=== PATIENT | female | born 1955 | race Caucasian/White ===

== ENCOUNTER 2016-06-08 10:09 | Emergency (ER) | payer OTHER ==
--- NOTE | 2016-06-08 10:45 | UCPHY ---
H & P Time Seen by Provider: 06/08/16 10:32 Patient Type: Established HPI/ROS: 60 yo with history of hyperlipidemia presents complaining of 3 weeks of ringing in her left ear, she states she has had left arm numbness intermittently that may have begun at about the same time 3 weeks ago and has become markedly worse since last night. She denies headache. She denies numbness in her right arm or other extremities. Review of systems As per HPI-left ear ringing, left arm numbness General no fever no chills no weakness HEENT no eye pain no eye discharge. No eye redness, no sore throat Respiratory no cough, no shortness of breath Cardiac no chest pain, no peripheral edema GI no abdominal pain, no diarrhea, no constipation, no nausea, no vomiting no flank pain, no hematuria, no dysuria Musculoskeletal no myalgias, no joint pain Heme no easy bruising, no easy bleeding Endo no polyuria, no polydipsia Skin no rashes, no pruritus Neuro no syncope, no dizziness, no headaches, positive paresthesias Psych is no suicidal ideation, no homicidal ideation Past Medical/Surgical History: Hyperlipidemia Social History: No alcohol, no drugs Smoking Status: Never smoked Physical Exam: 60-year-old female alert and oriented no acute distress nontoxic appearance, afebrile HEENT atraumatic normocephalic, extraocular muscles intact, anicteric Oropharynx negative for erythema negative exudate, tolerating her own secretions Neck supple no meningismus Lungs clear to auscultation bilaterally Heart regular rate and rhythm without murmur rub or gallop Abdomen nondistended normoactive bowel sounds soft nontender Back no CVA tenderness, no step-offs, no spinal tenderness Extremities no cyanosis clubbing or edema Neuro alert and oriented, 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 as a compared to the right 4+ over 5, decreased sensation to light touch in deltoid and distal forearm, no pronator drift, normal speech, no facial droop Constitutional: Initial Vital Signs Heart Rate 62 06/08/16 10:25 Respiratory Rate 18 06/08/16 10:25 Blood Pressure 154/78 H 06/08/16 10:25 O2 Sat (%) 95 06/08/16 10:25 O2 Delivery Mode Room Air Allergies/Adverse Reactions: No Known Allergies Allergy (Unverified 10/06/12 08:42) Home Medications: Medication Instructions Recorded NK [No Known Home Meds] 11/20/14 Medical Decision Making - Diagnostics EKG Interpretation: Normal sinus rhythm, rate 63, done on 06/08/2016 at 11:06 a.m[address] Imaging: CT scan negative ED Course/Re-evaluation: Patient seen and evaluated for symptoms of left ear ringing and pain, left arm numbness for approximately 3 weeks markedly worse since last night Physical exam normal except 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 and decreased sensation to light touch Differential diagnosis considered Cardiac, brain tumor, CVA, cervical radiculopathy CT scan negative Labs within normal limits Impression Left arm paresthesias, left ear ringing unknown etiology Referred to [facility] ER for further evaluation with possible MRI MRA - Data Points Laboratory Results: Laboratory Results 06/08/16 11:34 06/08/16 11:34 06/08/16 06/08/16 06/08/16 11:34 11:34 11:34 WBC 6.35 10^3/uL 10^3/uL (3.80-9.50) RBC 4.91 10^6/uL 10^6/uL (4.18-5.33) Hgb 15.9 g/dL g/dL (12.6-16.3) Hct 46.5 % % (38.0-47.0) MCV 94.7 fL fL (81.5-99.8) MCH 32.4 pg pg (27.9-34.1) MCHC 34.2 g/dL g/dL (32.4-36.7) RDW 12.7 % % (11.5-15.2) Plt Count 314 10^3/uL 10^3/uL (150-400) MPV 9.9 fL fL (8.7-11.7) Neut % (Auto) 61.5 % % (39.3-74.2) Lymph % (Auto) 26.5 % % (15.0-45.0) [place] % (Auto) 7.2 % % (4.5-13.0) Eos % (Auto) 3.6 % % (0.6-7.6) Baso % (Auto) 0.9 % % (0.3-1.7) Nucleat RBC Rel Count 0.0 % % (0.0-0.2) Absolute Neuts (auto) 3.90 10^3/uL 10^3/uL (1.70-6.50) Absolute Lymphs (auto) 1.68 10^3/uL 10^3/uL (1.00-3.00) Absolute Monos (auto) 0.46 10^3/uL 10^3/uL (0.30-0.80) Absolute Eos (auto) 0.23 10^3/uL 10^3/uL (0.03-0.40) Absolute Basos (auto) 0.06 10^3/uL 10^3/uL (0.02-0.10) Absolute Nucleated RBC 0.00 10^3/uL 10^3/uL (0-0.01) Immature Gran % 0.3 % % (0.0-1.1) Immature Gran # 0.02 10^3/uL 10^3/uL (0.00-0.10) PT 12.8 SEC SEC (12.0-15.0) INR 0.99 (0.83-1.16) APTT 29.4 SEC SEC (23.0-38.0) D-Dimer 0.29 ug/mLFEU ug/mLFEU (0.00-0.50) Sodium 146 mEq/L H mEq/L (134-144) Potassium 4.1 mEq/L mEq/L (3.5-5.2) Chloride 103 mEq/L mEq/L (97-110) Carbon Dioxide 26 mEq/l mEq/l (22-31) Anion Gap 17 mEq/L H mEq/L (8-16) BUN 11 mg/dL mg/dL (7-23) Creatinine 0.6 mg/dL mg/dL (0.6-1.0) Estimated GFR > 60 Glucose 105 mg/dL H mg/dL (70-100) Calcium 9.4 mg/dL mg/dL (8.5-10.4) Total Bilirubin 0.8 mg/dL mg/dL (0.1-1.4) AST 37 IU/L IU/L (14-46) ALT 39 IU/L IU/L (9-52) Alkaline Phosphatase 85 IU/L IU/L (38-126) Troponin I < 0.012 ng/mL ng/mL (0-0.034) Total Protein 8.6 g/dL H g/dL (6.3-8.2) Albumin 4.6 g/dL g/dL (3.5-5.0) Departure - Departure Disposition: [facility] Clinical Impression: Paresthesia of left arm, Tinnitus, left ear Condition: Good Referrals: Kathya Serrano DO [Primary Care Provider] - As per Instructions - PQRS PQRS Measurement: na
--- NOTE | 2016-06-08 11:09 | CPEKG ---
Heart Rate: 63 RR Interval: 952 P-R Interval: 140 QRSD Interval: 78 QT Interval: 404 QTC Interval: 414 P [place]: 31 QRS [place]: 28 T Wave [place]: 17 EKG Severity - NORMAL ECG - EKG Impression: SINUS RHYTHM Electronically Signed By: Sampson Medley 08-Jun-2016 16:05:30
[2016-06-08 11:38] LABS: % IMMATURE GRANULYOCYTES 0.3 % (0.0-1.1); ABSOLUTE IMMATURE GRANULOCYTES 0.02 10^3/uL (0.00-0.10); ADD DIFF? NO; ADD MORPH? NO; ADD SCAN? NO; ATYPICAL LYMPHOCYTE FLAG 10 (0-99); FRAGMENT RBC FLAG 0 (0-99); HEMATOCRIT 46.5 % (38.0-47.0); HEMOGLOBIN 15.9 g/dL (12.6-16.3); LEFT SHIFT FLG 0 (0-99); LIPEMIA HEMOLYSIS FLAG 90 (0-99); MEAN CELL HEMOGLOBIN 32.4 pg (27.9-34.1); MEAN CELL HEMOGLOBIN CONCENTR. 34.2 g/dL (32.4-36.7); MEAN CELL VOLUME 94.7 fL (81.5-99.8); MEAN PLATELET VOLUME 9.9 fL (8.7-11.7); PLATELET CLUMPS FLAG 0 (0-99); PLATELET COUNT 314 10^3/uL (150-400); RED BLOOD CELL COUNT 4.91 10^6/uL (4.18-5.33); RED CELL DISTRIBUTION WIDTH 12.7 % (11.5-15.2)
[2016-06-08 11:50] LABS: INR 0.99 (0.83-1.16); PROTIME(PATIENT) 12.8 SEC (12.0-15.0)
[2016-06-08 11:51] LABS: APTT 29.4 SEC (23.0-38.0)
[2016-06-08 11:52] LABS: ALANINE AMINOTRANSFERASE 39 IU/L (9-52); ALBUMIN 4.6 g/dL (3.5-5.0); ALKALINE PHOSPHATASE 85 IU/L (38-126); ANION GAP 17 mEq/L (8-16); ASPARTATE AMINOTRANSFERASE 37 IU/L (14-46); BILIRUBIN,TOTAL 0.8 mg/dL (0.1-1.4); CALCIUM 9.4 mg/dL (8.5-10.4); CARBON DIOXIDE 26 mEq/l (22-31); CHLORIDE 103 mEq/L (97-110); CREATININE 0.6 mg/dL (0.6-1.0); GLOMERULAR FILTRATION RATE > 60; GLUCOSE 105 mg/dL (70-100); POTASSIUM 4.1 mEq/L (3.5-5.2); SODIUM 146 mEq/L (134-144); TOTAL PROTEIN 8.6 g/dL (6.3-8.2)
[2016-06-08 12:07] LABS: TROPONIN I < 0.012 ng/mL (0-0.034)
--- NOTE | 2016-06-08 13:57 | EDPHY ---
H & P Smoking Status: Never smoked Time Seen by Provider: 06/08/16 10:32 HPI/ROS: CHIEF COMPLAINT: Left arm numbness HISTORY OF PRESENT ILLNESS: 60-year-old female with a history of hyperlipidemia presents with left arm numbness. Onset of paresthesias last evening, persistent since then. The paresthesias extend throughout the entire arm. She had left ear pressure yesterday, but none today. No associated headache or neck pain. She had 1 prior similar episode 3 weeks ago, which spontaneously resolved. She was sent here from [facility] for an MRI of the brain. Evaluation at [facility] included a normal CT scan of the brain. REVIEW OF SYSTEMS: Constitutional: No fever, no chills Eyes: No visual changes ENT: No sore throat Respiratory: No cough, no shortness of breath Cardiac: No chest pain Gastrointestinal: No nausea, no vomiting, no abdominal pain Genitourinary: no dysuria Musculoskeletal: No leg pain or swelling Skin: No rash Neurological: No headache, no weakness Psychiatric: No depression (Junie Harris) Past Medical/Surgical History: Hyperlipidemia (Junie Harris) Social History: PCP: Dr. Pineda (Junie Harris) Physical Exam: General Appearance: Alert, pleasant Eyes: Pupils equal and round, no conjunctival pallor or injection ENT, Mouth: Mucous membranes moist, left tympanic membrane is normal Neck: Normal inspection, no tenderness, range of motion without pain Respiratory: Lungs are clear to auscultation Cardiovascular: Regular rate and rhythm Gastrointestinal: Abdomen is soft and nontender Neurological: Alert, oriented x3, cranial nerves II through XII intact, motor 5 /5, sensory intact to light touch, normal gait Skin: Warm and dry, no rash Extremities: Left arm-normal inspection, no tenderness, range of motion without pain Vascular: Radial pulses 2+ bilaterally Psychiatric: Mood and affect normal (Junie Harris) Constitutional: Initial Vital Signs Heart Rate 62 06/08/16 10:25 Respiratory Rate 18 06/08/16 10:25 Blood Pressure 154/78 H 06/08/16 10:25 O2 Sat (%) 95 06/08/16 10:25 O2 Delivery Mode Room Air Allergies/Adverse Reactions: No Known Allergies Allergy (Unverified 10/06/12 08:42) Home Medications: Medication Instructions Recorded NK [No Known Home Meds] 11/20/14 Medical Decision Making - Diagnostics Imaging: MRI brain negative per Shira Unger-spine shows mild disc degeneration at 5/6 and 6/ 7 no cord compression, reviewed at 1604. (Sampson Medley) ED Course/Re-evaluation: 3pm--signed over to Dr. Medley at shift change to check MRI results. (Junie Harris) Other Provider: Care assumed from Dr. Harris at 2:40 p.m. with plan for MRI of the brain and cervical spine, disposition pending those results. Temperature 36.3degrees at 1:33 p.m. 12-lead EKG interpreted by me; official reading is in trace master. My interpretation is normal sinus rhythm, no ischemic changes at 11:06 a.m. MRI report reviewed with the patient and okay for discharge with outpatient neurology follow-up. Her symptoms have resolved completely at the time that I discuss the results. 1615: Results discussed in detail and questions answered with piano professor Driss in the room. (Sampson Medley) - Data Points Laboratory Results: Laboratory Results 06/08/16 11:34 06/08/16 11:34 06/08/16 06/08/16 06/08/16 11:34 11:34 11:34 WBC 6.35 10^3/uL 10^3/uL (3.80-9.50) RBC 4.91 10^6/uL 10^6/uL (4.18-5.33) Hgb 15.9 g/dL g/dL (12.6-16.3) Hct 46.5 % % (38.0-47.0) MCV 94.7 fL fL (81.5-99.8) MCH 32.4 pg pg (27.9-34.1) MCHC 34.2 g/dL g/dL (32.4-36.7) RDW 12.7 % % (11.5-15.2) Plt Count 314 10^3/uL 10^3/uL (150-400) MPV 9.9 fL fL (8.7-11.7) Neut % (Auto) 61.5 % % (39.3-74.2) Lymph % (Auto) 26.5 % % (15.0-45.0) [place] % (Auto) 7.2 % % (4.5-13.0) Eos % (Auto) 3.6 % % (0.6-7.6) Baso % (Auto) 0.9 % % (0.3-1.7) Nucleat RBC Rel Count 0.0 % % (0.0-0.2) Absolute Neuts (auto) 3.90 10^3/uL 10^3/uL (1.70-6.50) Absolute Lymphs (auto) 1.68 10^3/uL 10^3/uL (1.00-3.00) Absolute Monos (auto) 0.46 10^3/uL 10^3/uL (0.30-0.80) Absolute Eos (auto) 0.23 10^3/uL 10^3/uL (0.03-0.40) Absolute Basos (auto) 0.06 10^3/uL 10^3/uL (0.02-0.10) Absolute Nucleated RBC 0.00 10^3/uL 10^3/uL (0-0.01) Immature Gran % 0.3 % % (0.0-1.1) Immature Gran # 0.02 10^3/uL 10^3/uL (0.00-0.10) PT 12.8 SEC SEC (12.0-15.0) INR 0.99 (0.83-1.16) APTT 29.4 SEC SEC (23.0-38.0) D-Dimer 0.29 ug/mLFEU ug/mLFEU (0.00-0.50) Sodium 146 mEq/L H mEq/L (134-144) Potassium 4.1 mEq/L mEq/L (3.5-5.2) Chloride 103 mEq/L mEq/L (97-110) Carbon Dioxide 26 mEq/l mEq/l (22-31) Anion Gap 17 mEq/L H mEq/L (8-16) BUN 11 mg/dL mg/dL (7-23) Creatinine 0.6 mg/dL mg/dL (0.6-1.0) Estimated GFR > 60 Glucose 105 mg/dL H mg/dL (70-100) Calcium 9.4 mg/dL mg/dL (8.5-10.4) Total Bilirubin 0.8 mg/dL mg/dL (0.1-1.4) AST 37 IU/L IU/L (14-46) ALT 39 IU/L IU/L (9-52) Alkaline Phosphatase 85 IU/L IU/L (38-126) Troponin I < 0.012 ng/mL ng/mL (0-0.034) Total Protein 8.6 g/dL H g/dL (6.3-8.2) Albumin 4.6 g/dL g/dL (3.5-5.0) Departure - Departure Disposition: Home, Routine, Self-Care Clinical Impression: Paresthesia of left arm Condition: Good Instructions: Paresthesia (ED) Referrals: Kathya Serrano DO [Primary Care Provider] - As per Instructions Dinesh Chao DO [Doctor of Osteopathy] - As per Instructions (If symptoms persist please see this neurologist in the office next week.) Print Language: Greenlandic
[2016-06-08 15:51] VITALS: BP 148/85; PULSE 85; RESP 18; TEMP 97.7; O2SAT 97
== END 2016-06-08 16:44 | disposition home or self-care (01) ==
LOC: CED 10:09
DX: R20.2 Paresthesia of skin (principal)
CPT/HCPCS: 70450-PO; 71020-PO; 80053-PO; 84484-PO; 85025-PO; 85378-PO; 85610-PO; 85730-PO

== ENCOUNTER → 2018-06-22 | Outpatient (CLI) | payer BC | LOC: FIMAGING 11:04 | PROVIDERS: ATTEND Family Medicine | DX: Z51.81 Encounter for therapeutic drug level monitoring (principal); M81.0 Age-related osteoporosis without current pathological fracture; E55.9 Vitamin D deficiency, unspecified; Z78.0 Asymptomatic menopausal state ==